=== PATIENT | male | born 1990 | race Caucasian/White ===

== ENCOUNTER 2017-08-25 08:30 | Day surgery (SDC) | payer OTHER ==
[2017-08-22 11:41] VITALS: BMI 25.8
[2017-08-25] MEDS ORDERED: MIDAZOLAM HCL 2 MG/2 ML SINGLE DOSE VIAL ONE (10:17)
[2017-08-25] MEDS ORDERED: BUPIVACAINE HCL/PF 2.5 MG/ML - 30 ML VIAL IJ ONE (10:29)
[2017-08-25] MEDS ORDERED: BUPIVACAINE HCL/PF 0.25% (2.5MG/ML) 10 ML VIAL IJ ONE (11:16)
[2017-08-25] MEDS ORDERED: oxyCODONE HCL 5 MG TABLET PO PRN (11:33)
[2017-08-25] MEDS ORDERED: ONDANSETRON 4 MG/2 ML VIAL IVPUSH PRN (11:33)
[2017-08-25] MEDS ORDERED: LACTATED RINGERS SOLUTION 1,000 ML IV SCH (11:45)
[2017-08-25 13:40] VITALS: BP 108/60; PULSE 63; TEMP 97.8
--- NOTE | 2017-08-28 20:17 | OP ---
DATE OF OPERATION: 08/25/2017 PREOPERATIVE DIAGNOSIS: 1. Left knee medial and lateral meniscal tear. 2. Left knee cartilage injury. 3. Left knee synovitis. POSTOPERATIVE DIAGNOSIS: 1. Left knee medial and lateral meniscal tear. 2. Left knee cartilage injury. 3. Left knee synovitis. PROCEDURE: 1. Left knee arthroscopy with partial meniscectomy, medial and lateral meniscus. 2. Left knee arthroscopy with chondroplasty and abrasion plasty. 3. Left knee arthroscopy with synovectomy, including removal of medial plica. SURGEON: Collette Man MD [employer]: ABBY Vizcarra FINDINGS: 1. Medial meniscus posterior horn tear/ . 2. Lateral meniscus posterior horn tear. 3. Synovitis patellofemoral medial and lateral notch area with thickened anterior scar tissue. 4. Anterior horn medial meniscal tear. 5. Anterior grade 1 cartilage injury medial tibial plateau. 6. ACL and PCL intact. 7. No evidence of cartilage injury in the lateral joint line. 8. Anterior grade 2-4 cartilage injury site of the medial plica anterior synovial adhesion along the patellofemoral joint. PROCEDURE: Informed consent was obtained. The patient was taken to the operating room where the left lower extremity was prepped and draped in a sterile fashion. A tourniquet was placed on the left upper thigh but not inflated. Using standard arthroscopic technique, a lateral incision and portal were made which allowed for introduction of the camera into the suprapatellar bursa. This was then taken to the medial joint line where under direct visualization, a medial incision and portal were made. Excessive synovium noted in the medial, lateral, patellofemoral and notch area was removed by the up-biting shaver and Bovie cautery. This was found to bring inflammatory tissue into the joint surface, a source of joint pain and dysfunction. Probing of the medial and lateral meniscus found tears described in the findings. These were removed with an up-biting shaver and taken back to a stable rim. Grade 2-3 degenerative changes were treated with chondroplasty, removing all flaking surfaces with low setting Bovie used along the periphery. Grade 4 changes were treated with abrasion-plasty. All areas of the knee were once again re-examined. The knee was then drained. A single suture was placed on all portals. Sterile dressing was placed. The patient was transferred to the recovery room. ADDENDUM: Patient with limited motion of his right shoulder. Manipulation under anesthesia was performed with 180 degrees of elevation, 90 degrees of external rotation, 90 degrees of internal rotation. COLLETTE MAN M.D. [id number]
--- NOTE | 2017-08-30 15:44 | PATH ---
Surgical Pathology Report Patient Name: SIERRA MIGUEL Med. Rec. #: [id number] /Age/Gender: 1990 (Age: 27) / M Account: [id number] Location: [facility] AMBULATORY Taken: 08/25/2017 Received: 08/25/2017 Reported: 08/30/2017 Physicians: Guevara Ambrocio M.D. Specimen(s) Received LEFT KNEE SHAVINGS Clinical History Capsulitis of the right shoulder, internal derangement of the left knee Final Diagnosis KNEE, LEFT, ARTHROSCOPIC SHAVINGS: FIBROSYNOVIAL TISSUE. Electronically Signed Jenny Talley M.D. Gross Description Received in formalin, labeled "left knee shavings," is a 4.3 x 4.0 x 0.3 cm. aggregate of johnson-yellow soft tissue fragments. A health and safety representative portion is submitted in one cassette. 08/29/201708/29/2017
== END 2017-08-25 13:41 | disposition home or self-care (01) ==
LOC: FASU 08:30 → EDBD 12:30 → FASU 13:41
PROVIDERS: ATTEND Orthopaedic Surgery
PROC: 0SBC4ZZ Excision of Right Knee Joint, Percutaneous Endoscopic Approach (ICD-10-PCS; 2017-08-25)
PROC: 0SBC4ZZ Excision of Right Knee Joint, Percutaneous Endoscopic Approach (ICD-10-PCS; principal; 2017-08-25 10:30)
PROC: 0SBC4ZZ Excision of Right Knee Joint, Percutaneous Endoscopic Approach (ICD-10-PCS; 2017-08-25 10:30)
DX: S83.241A Other tear of medial meniscus, current injury, right knee, initial encounter (principal); S83.281A Other tear of lateral meniscus, current injury, right knee, initial encounter; S83.8X1A Sprain of other specified parts of right knee, initial encounter; M65.861 Other synovitis and tenosynovitis, right lower leg; X58.XXXA Exposure to other specified factors, initial encounter; Y93.9 Activity, unspecified; Y92.9 Unspecified place or not applicable
CPT/HCPCS: 88304-TC; 94760

== ENCOUNTER 2024-04-25 16:59 | Emergency (ER) | payer BC, OTHER ==
[2024-04-25 17:05] VITALS: BP 128/68; PULSE 55; RESP 18; TEMP 97.6; BMI 26.6
[2024-04-25] MEDS ORDERED: DIPHTH,PERTUSS(ACELL),TET 0.5 ML DISP.SYRIN IM ONE (17:20)
[2024-04-25] MEDS: DIPHTH,PERTUSS(ACELL),TET 0.5 ML DISP.SYRIN IM ONE (17:23)
[2024-04-25] MEDS ORDERED: LIDOCAINE HCL 1%, 10 MG/ML (20ML VIAL) ONE (17:27)
[2024-04-25] MEDS ORDERED: BACITRACIN ZINC 15 GM TUBE TOPICAL OINTMENT ONE (17:55)
== END 2024-04-25 18:14 | disposition home or self-care (01) ==
LOC: JERFT 16:59 → JER 16:59 → JERFT 18:14
PROC: 0XQWXZZ Repair Left Little Finger, External Approach (ICD-10-PCS; principal; 2024-04-25)
PROC: 3E0234Z Introduction of Serum, Toxoid and Vaccine into Muscle, Percutaneous Approach (ICD-10-PCS; 2024-04-25)
DX: S61.217A Laceration without foreign body of left little finger without damage to nail, initial encounter (principal); W26.8XXA Contact with other sharp object(s), not elsewhere classified, initial encounter; Z23 Encounter for immunization
CPT/HCPCS: 73140-TC-LT-FY; 90715; 99283-25

== ENCOUNTER 2024-05-08 17:31 | Emergency (ER) | payer BC ==
[2024-05-08 17:40] VITALS: BP 121/71; PULSE 78; RESP 18; TEMP 98; BMI 26.6
[2024-05-08] MEDS ORDERED: CEPHALEXIN MONOHYDRATE 500 MG CAPSULE (UD) ONE (19:00)
[2024-05-08] MEDS: CEPHALEXIN MONOHYDRATE 500 MG CAPSULE (UD) PO ONE (19:03)
== END 2024-05-08 19:24 | disposition home or self-care (01) ==
LOC: JERFT 17:31
DX: Z48.02 Encounter for removal of sutures (principal)
CPT/HCPCS: 99281-25